=== PATIENT | female | born 1965 | race Caucasian/White ===

== ENCOUNTER 2023-12-16 12:28 | Emergency (ER) | payer OTHER, SELFPAY ==
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
[2023-12-16 12:36] VITALS: BP 139/78; PULSE 92; RESP 18; TEMP 36.2; O2SAT 96; BMI 30.9
== END 2023-12-16 13:53 | disposition home or self-care (01) ==
PROVIDERS: Emergency Provider Emergency Medicine
DX: M54.2 Cervicalgia (principal)
CPT/HCPCS: 99283